=== PATIENT | male | born 1965 | race Caucasian/White ===

== ENCOUNTER → 2017-12-30 | Outpatient (CLI) | payer MEDICARE ==
--- NOTE | 2017-12-30 14:21 | RAD ---
CT pelvis without contrast 12/30/2017 Indication: Osteomyelitis of the left hip. 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 Comparison: None available. Technique: Multiple axial CT images of the pelvis were obtained without intravenous contrast. Coronal and sagittal reformats are provided. Findings: There is an aneurysm of the infrarenal abdominal aorta which is only partially profiled. This measures approximately 4.6 x 6.1 cm. There is mild atherosclerotic changes of the pelvic vasculature. There are no pathologically enlarged lymph nodes in the pelvis. There is no free fluid identified. Small and large bowel are normal in caliber. No evidence for bowel obstruction. Urinary bladder is within normal limits given degree of distention. Prostate and seminal vesicles appear normal. Visualized portions of the kidneys appear normal. There is obscuration of the left gluteal region with a skin defect extending to the level of the left ischium. There is soft tissue thickening about the ischium with subtle cortical irregularity. No osseous erosions are identified. There is suggestion of anal prolapse versus external hemorrhoids. There is a right hip joint effusion. There is right-sided abnormal femoral head neck offset as may be seen in the setting of cam type femoral acetabular impingement. There is moderate joint space narrowing bilaterally, right greater than left. Marginal osteophytosis is present. Findings are suggestive of moderate osteoarthrosis of the hip joints. There is atrophy of the gluteal musculature bilaterally. There is asymmetric atrophy of the right psoas muscle. Sacroiliac joints are maintained. Pubic symphysis is normal. Pelvic ring appears intact. The sacrum is intact. There is chronic deformity of the sacrococcygeal articulation. Impression: 1. Findings are compatible with clinical diagnosis of stage IV pressure ulcer of the left gluteal region. There is irregularity of the left ischium without definite erosions. Further evaluation with MRI of the pelvis may be of benefit to assess for osteomyelitis. 2. There is moderate osteoarthrosis of the hip joints, right greater left. There is suggestion of a moderate-sized right hip joint effusion versus synovitis. 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 3. Infrarenal abdominal aortic aneurysm measuring 4.6 x 6.1 cm. Surgical consultation is recommended. PQRS Compliance Statement: One or more of the following individualized dose reduction techniques were utilized for this examination: 1. Automated exposure control 2. Adjustment of the mA and/or kV according to patient size 3. Use of iterative reconstruction technique
== END | disposition home or self-care (01) ==
LOC: CT 13:10
PROVIDERS: ATTEND Plastic Surgery
DX: L89.324 Pressure ulcer of left buttock, stage 4 (principal); M86.652 Other chronic osteomyelitis, left thigh; M62.58 Muscle wasting and atrophy, not elsewhere classified, other site
CPT/HCPCS: 72192